=== PATIENT | male | born 1960 | race Caucasian/White ===

== ENCOUNTER 2018-03-04 06:24 | Day surgery (SDC) | payer OTHER ==
[2018-03-04] MEDS ORDERED: Sodium Chloride 0.9% 1,000 ML IV SCH (07:15)
[2018-03-04] MEDS ORDERED: Albuterol/Ipratropium 3.0-0.5 MG/3 ML Neb Soln NEB ONE (07:35)
[2018-03-04] MEDS ORDERED: Propofol 200 MG/20 ML SDV ONE (07:53)
[2018-03-04] MEDS ORDERED: fentaNYL 100 MCG/2 ML SDV ONE (07:53)
[2018-03-04] MEDS ORDERED: Midazolam 1 MG/ML 2 ML SDV ONE (07:53)
[2018-03-04 09:15] VITALS: BP 124/76
--- NOTE | 2018-03-04 11:11 | OR ---
DATE OF PROCEDURE: 03/04/2018 PROCEDURE: Colonoscopy. FINDINGS: 1. Ascending colon polyp, approximately 1 cm, completely removed using hot snare. 2. Ascending colon polyp, approximately 1 cm, completely removed using hot snare. 3. Transverse colon polyp, approximately 1 cm, completely removed using hot snare. 4. Cecal polyp, approximately 5 mm, completely removed using hot snare. COMPLICATIONS: None. [employer]: None. PREOPERATIVE DIAGNOSIS: Reported chronic bowel disease of unknown specificity. The patient cannot determine the etiology. POSTOPERATIVE DIAGNOSIS: Reported chronic bowel disease of unknown specificity. The patient cannot determine the etiology. RISKS: Risks, benefits, alternatives, and limitations including, but not limited to infection, bleeding, and perforation were explained to the patient, who wished to proceed. PROCEDURE IN DETAIL: The patient was placed in left lateral decubitus position. Digital rectal exam was performed without abnormality. The scope was introduced and advanced atraumatically to the ileocecal valve. The scope was brought back through the ascending, transverse, descending colon, and retroflexed. The aforementioned polyps were all identified and completely removed as described above. No abnormal bleeding or abnormalities noted after removal. No abnormalities on retroflex. No diverticulosis. No diverticulitis. No colitis. No evidence of old or new blood. The patient tolerated the procedure well. Teto Ellison MD /[id number]
== END 2018-03-04 09:21 | disposition home or self-care (01) ==
LOC: JP.SDS 06:24
PROVIDERS: ATTEND Surgery
DX: K63.9 Disease of intestine, unspecified (principal); D12.2 Benign neoplasm of ascending colon; D12.0 Benign neoplasm of cecum; D12.3 Benign neoplasm of transverse colon; D17.5 Benign lipomatous neoplasm of intra-abdominal organs; I10 Essential (primary) hypertension; E11.9 Type 2 diabetes mellitus without complications; E66.01 Morbid (severe) obesity due to excess calories; F17.210 Nicotine dependence, cigarettes, uncomplicated
CPT/HCPCS: 45385; J2250; J2704; J3010; J7030; 88305; J7620-GY